=== PATIENT | female | born 1990 | race African-American/Black ===

== ENCOUNTER 2017-08-25 11:33 | Emergency (ER) | payer BC, SELFPAY ==
[2017-08-25] MEDS ORDERED: Dexamethasone 4 mg/ml Vial ONE (12:13)
[2017-08-25] MEDS ORDERED: Ketorolac Tromethamine 30 MG/ML VIAL ONE (12:13)
== END 2017-08-25 12:54 | disposition home or self-care (01) ==
LOC: ERS 11:33
DX: M65.842 Other synovitis and tenosynovitis, left hand (principal); G47.30 Sleep apnea, unspecified; F41.9 Anxiety disorder, unspecified
CPT/HCPCS: 96372; J1100; J1885

== ENCOUNTER 2017-10-28 19:15 | Emergency (ER) | payer BC, SELFPAY | END 2017-10-28 20:28 | disposition home or self-care (01) | LOC: ERS 19:15 | DX: J11.1 Influenza due to unidentified influenza virus with other respiratory manifestations (principal); G47.30 Sleep apnea, unspecified | CPT/HCPCS: 99283 ==

== ENCOUNTER 2018-08-03 21:59 | Emergency (ER) | payer BC, SELFPAY | END 2018-08-03 22:53 | disposition home or self-care (01) | LOC: ERS 21:59 | DX: G47.30 Sleep apnea, unspecified (principal) | CPT/HCPCS: 99284 ==

== ENCOUNTER 2019-01-21 14:20 | Outpatient (CLI) | payer OTHER ==
--- NOTE | 2019-01-21 15:14 | ULT ---
US Pelvic W Doppler HISTORY:Evaluation for size and dates COMPARISON: None. FINDINGS: Real-time imaging of the pelvis was obtained and shows a single viable intrauterine pregnan cy. The heart rate is 163 beats per minute. [place]-rump length measurements of 4.6 cm corresponding to 11 weeks 3 days. Gestational sac measurements of 4.5 cm corresponding to 10 weeks 0 days. Placenta is not accurately localized at this time but does appear to be forming posteriorly.. The right ovary shows a corpus luteum type cyst measuring approximately 2.7 cm. The left ovary is nev er definitively visualized. IMPRESSION: Single viable intrauterine measurements correspond to a gestational age of 10 w eeks 5 days. Estimated date of delivery 08/14/2019.
== END 2019-01-21 14:21 | disposition home or self-care (01) ==
LOC: SCSULT 14:20
PROVIDERS: ATTEND Nurse Practitioner
DX: O09.91 Supervision of high risk pregnancy, unspecified, first trimester (principal); Z3A.10 10 weeks gestation of pregnancy
CPT/HCPCS: 76856; 93976

== ENCOUNTER 2019-03-22 06:38 | Outpatient (CLI) | payer OTHER ==
--- NOTE | 2019-03-22 11:52 | ULT ---
OB ULTRASOUND: HISTORY: anatomy. FINDINGS: A single live intrauterine gestation is seen with measurements corresponding to an estimated gestatio nal age of 20 weeks 1 day and an GREGG of 08/08/2019. The estimated weight measures 335 g (12 oz ). This corresponds to the 90th percentile by Hadlock criteria. measurements are as follows: BPD: 4.59 cm (20 weeks 0 day) HC: 17.03 cm (19 weeks 5 days) AC: 14.44 cm (19 weeks 6 days) FL: 3.41 cm (20 weeks 6 days) heart rate measures 144 beats per minute. Cervical length measures 3.5 cm. The placenta is po steriorly located without evidence of placenta previa. Amniotic fluid appears within normal limits. Three-vessel cord, cord insertion, kidneys, bladder, stomach, four-chambered heart, lateral reji tricles, cerebellum, bladder, spine. lips/nose, and upper and lower extremities are visualized. No d efinite anomalies are seen. There is a 3.1 x 2.5 x 2.4 cm fibroid in the anterior uterus. There is a 4.9 x 4 x 3.5 cm adnexal mass adjacent to the right ovary with low resistance flow. No fr ee fluid is seen. IMPRESSION: 1. Single live intrauterine of 20 weeks' 1 day estimated gestational age and estimated jt e of delivery of 08/08/2019. 2. Uterine fibroid. 3. Right adnexal mass, measuring 4.9 x 4 x 3.5 cm. A follow-up examination is recommended. POS: E[facility]
== END 2019-03-22 06:39 | disposition home or self-care (01) ==
LOC: BICULT 06:38
PROVIDERS: ATTEND Obstetrics & Gynecology
DX: O09.92 Supervision of high risk pregnancy, unspecified, second trimester (principal); Z3A.20 20 weeks gestation of pregnancy
CPT/HCPCS: 76805

== ENCOUNTER 2019-05-25 13:34 | Day surgery (SDC) | payer OTHER ==
[2019-05-25 14:23] VITALS: BMI 47.0
--- NOTE | 2019-05-25 15:08 | PDOC.FPROB ---
FMR OB H&P: HPI - History of Present Illness Chief Complaint: heart racing Indentification: 28 yo at 28.3 wga by LMP c/w 7.5 wk sono History of Present Illness: Patient presents for "heart racing" which started last night. She saw her doctor yesterday and they told her to go to the ER, but she was feeling well and came in today when the palpitations started. She has never had this feeling before, although she does note she has had EKGs previously for chest pain symptoms. States pain is intermittent and worse at night. Associated symptoms include lightheadedness, dizziness, shortness of breath that worsens w / activity, night sweats, and tingling/numbness in her fingers and toes. Denies chest pain currently. Patient reports headache nearly every night and some blurry vision at the end of her day. Denies extremity swelling and abdominal pain. She reports no complications w/ this . She denies VB, LOF, Contractions. Endorses movement. The patient states she has a 31 yo cousin who suffers from CHF but she is not sure of the source. She states she has multiple other family members of similiar ages on medications for heart disease but is unsure of specific diagnosis. Primary Care Physician: Guerita FMR OB H&P: Current - Care : 1 Para: 0 Gestational age: 28.3 wga Due date: 08/14/2019 Dating Criteria: LMP c/w 7.5 wk sono Course/Complications: None reported. Rh-negative. - OB Labs Blood type: A RH: negative HIV: negative RPR: negative HepBsAg: negative Rubella: immune Quad screen: negative Urine drug screen: negative Gonorrhea: negative Chlamydia: negative FMR OB H&P: History - Past Medical History PMH: Severe sleep apnea. Does not use CPAP or anything else at night. Thyroid disorder. Reports needing medication years ago and her thyroid was high. However, she has not taken these medications for years and says the issue seemed to resolve. Acid reflux, occasionally. - OB History OB History: Denies gHTN, GDM, Pre-E or other problems. - Family History Family History: Mother: HTN. Maternal relatives w/ HTN. FMR OB H&P: Medications - Current Allergies/Adverse Reactions: Allergies Allergy/AdvReac Type Severity Reaction Status Date / Time No Known Allergies Allergy Verified 05/25/19 14:20 FMR OB H&P: ROS - Review of Systems General: reports: night sweats. denies: fever/chills, weight/appetite/sleep changes Eyes: reports: vision changes, double vision ENT: denies: nasal congestion, rhinorrhea, ear pain, sore throat, pain with swallowing Cardiovascular: reports: palpitation. denies: chest pain, edema, orthopnea Respiratory: reports: shortness of breath, exercise intolerance. denies: cough , congestion Gastrointestinal: denies: abdominal pain, nausea, vomiting, constipation Genitourinary (Female): reports: vaginal discharge (minimal). denies: dysuria, vaginal pain, vaginal bleeding, contractions, vaginal pressure Musculoskeletal: denies: pain, swelling Neurologic: reports: headache. denies: syncope Integumentary: denies: itching, rash Psychological: denies: depression, anxiety FMR OB H&P: Vital Signs - Maternal Vital signs: HR: 120s on admission BP 128/76 RR: 18 Temp 98.2 - Heart Tones Baseline: 140 (reactive) Variability: moderate FMR OB H&P: Physical Exam - Physical Exam General: NAD, awake, alert and oriented HEENT: normocephalic and atraumatic, PERRLA, MMM, conjunctiva clear, no scleral icterus, oropharynx clear Neck: supple (some hair under chin), trachea midline, no LAD (no thyromegaly) Chest: non-tender to palpation Heart: normal S1/S2, no murmurs/rubs/gallops (tachycardic rate) General: CTAB, no respiratory distress, good air movement Abdomen: soft, gravid, fundus(cm) (above umbilicus), non-tender, bowel sound present Musculoskeletal: pulses present (in all 4 extremities) Skin: no rash, capillary refill <2 seconds Lymphatic: no unusual bruising or bleeding, no petechia Psychiatric: intact recent and remote memory, good judgement and insight, normal mood and affect FMR OB H&P: A/P Disposition: 28 yo here for heart palpitations: - Will monitor in OB triage pending labs - EKG ordered: result was sinus tachycardia at 104 bpm. - TSH ordered: WNL - CMP, magnesium ordered: WNL - Low suspicion for Pre-eclampsia F/U plan: - Patient okay to d/c home. - Her HR has improved from 120 to 104 since admission. - Encourage PO hydration and routine f/u w/ PCP and providers. - Gave referral information for Dr. Hawthorne office - faxing record of this visit to Dr. Hawthorne's office, he has been notified to expect referral - discussed case with patient's PCP Dr. Tera Kennedy MD PGY1 Discussion: Date/Time: 05/25/191 This H&P was discussed with Dr. Verduzco, and Dr. Gamboa who agree with the above documentation and plan. Addendum - Attending - Attending Attestation Date/Time: 05/26/192014 I personally evaluated the patient and discussed the management with Dr. Verduzco I agree with the History, Examination, Assessment and Plan documented above with any addition or exceptions noted below. Pt presenting with intermittent paroxyzmal palpitations with associated sob. Pt reports symptoms have improved since coming. Has family h/o heart problems on her mom's side. No obstetric complaints vital review tachycardia improved with po hydrations EKG wnl rrr ctab A/P iup third trimester with paroxysmal palpatations. given reported family h/o heart problems we have contacted the lab nurse computer numerical control programmer and have arranged out pt referral for follow up. EKG, notes have been faxed to Dr Sepulveda office. Pt has been d/c'd home
[2019-05-25 15:51] LABS: ALT (SGPT) 11 U/L (8-55); AST (SGOT) 12 U/L (5-34); Albumin 3.2 g/dL (3.5-5.0); Alkaline Phosphatase 83 U/L (40-150); Anion Gap 13 mmol/L (10-20); BUN (Urea Nitrogen) 6 mg/dL (7.0-18.7); Bilirubin, Total Less than 0.2 mg/dL (0.2-1.2); Calc. Creatinine Clearance 223 mL/min (70-130); Calcium 8.8 mg/dL (7.8-10.44); Carbon Dioxide 19 mmol/L (22-29); Chloride 106 mmol/L (98-107); Estimated GFR-MDRD Greater than 90; Globulin 3.3 g/dL (2.4-3.5); Glucose 128 mg/dL (70-105); Magnesium 1.7 mg/dL (1.6-2.6); Potassium 3.7 mmol/L (3.5-5.1); Protein, Total 6.5 g/dL (6.0-8.3); Sodium 134 mmol/L (136-145)
== END 2019-05-25 17:20 | disposition home health service (06) ==
LOC: L&D/OP 13:34
PROVIDERS: ATTEND Obstetrics & Gynecology
DX: O99.89 Other specified diseases and conditions complicating pregnancy, childbirth and the puerperium (principal); R00.2 Palpitations; Z3A.28 28 weeks gestation of pregnancy
CPT/HCPCS: 36415; 80053; 83735; 84443; 93005; 93010; 99282

== ENCOUNTER 2019-06-15 14:11 | Outpatient (CLI) | payer OTHER ==
--- NOTE | 2019-06-15 14:45 | ULT ---
OB ULTRASOUND LIMITED: 06/15/19 INDICATION: Evaluation of growth. FINDINGS: There is a live intrauterine gestation with cardiac activity documented at 153 beats per minute . On the basis of sonographic imaging, gestational age of 31 weeks, 3 days is documented with estimated date of delivery by ultrasound of 08/14/19. Fetus is in a cephalic lie. Placenta is located to the le ft. There is no sonographic evidence to indicate placenta previa. Calculated DANIEL is 8.5 cm. Estimated weight is 1801 grams. Dedicated anatomic survey not performed on the basis of the exam. IMPRESSION: Single live intrauterine gestation as above. As necessary, imaging follow-up may be obtained. POS: TPC
== END 2019-06-15 14:12 | disposition home or self-care (01) ==
LOC: BICULT 14:11
DX: O09.893 Supervision of other high risk pregnancies, third trimester (principal); Z3A.31 31 weeks gestation of pregnancy
CPT/HCPCS: 76815

== ENCOUNTER 2019-07-15 16:20 | Day surgery (SDC) | payer OTHER ==
[2019-07-15] MEDS ORDERED: hydrALAZINE 20 MG/ML VIAL SLOW IVP PRN (17:36)
[2019-07-15 17:54] VITALS: BMI 43.3
--- NOTE | 2019-07-15 18:28 | PRG ---
DATE OF SERVICE: 07/15/2019 TIME OF SERVICE: 1730 hours. PRESENTING COMPLAINT: Seeing spots and contractions at 35 weeks and 5 days. HISTORY OF PRESENT ILLNESS: Ms. Mcnamara is a 28-year-old 1, para 0, with the EDC of 08/14, placing her at 35 weeks and 5 days, who sees Dr. Niya Haley at [facility]. She has had an uncomplicated and reports seeing spots this afternoon and contractions. She denies headache or blurred vision. She denies rupture of membranes. She has an active fetus. ASSOCIATE ACCOUNT EXECUTIVE HISTORY: A negative. Antibody negative. Pap negative. Rubella immune. VDRL nonreactive. Hepatitis B, GC, chlamydia negative. UDS negative. Group B strep pending. MEDICAL HISTORY: The patient had a long history of palpitations that seem worse during . She is currently wearing a Holter monitor. She saw a motor grader rough grade in [place]. SURGICAL HISTORY: None. ALLERGIES: NONE. MEDICATIONS: vitamins. SOCIAL HISTORY: Denies tobacco, alcohol, or IV drug use. FAMILY HISTORY: Noncontributory. REVIEW OF SYSTEMS: Noncontributory. PHYSICAL EXAMINATION: GENERAL: White female, resting comfortably. VITAL SIGNS: Pulse 86, respirations 18, temp 98.2, blood pressure was 116/72, serial blood pressures were all less than 128/86. HEENT: Within normal limits. LUNGS: Clear to auscultation bilaterally. HEART: Regular rhythm. ABDOMEN: Soft and nontender. Fundal height 36 cm. FHTs 140s. : Vulva without lesions. Vaginal exam by RN was closed, long, and high. Cephalic. EXTREMITIES: Without clubbing, cyanosis, or edema. LABORATORY DATA: Extended monitoring revealed a baseline of 130s to 140s. Positive accelerations. No decelerations. No contractions noted. Category I heart rate tracing. IMPRESSION: 35 to 36 weeks gestation without evidence of preeclampsia or labor. Discomforts of present. PLAN: Discharge home. ER precautions. Keep scheduled followup tomorrow with Dr. Niya Haley at [facility]. Job ID: [id number]
== END 2019-07-15 17:56 | disposition home health service (06) ==
LOC: L&D/OP 16:20
PROVIDERS: ATTEND Obstetrics & Gynecology
DX: O47.03 False labor before 37 completed weeks of gestation, third trimester (principal); O26.893 Other specified pregnancy related conditions, third trimester; H53.8 Other visual disturbances; Z3A.35 35 weeks gestation of pregnancy

== ENCOUNTER 2019-08-09 05:30 | Inpatient (IN) | payer OTHER ==
[~2019-08-09 05:30] MED LIST: Bupivacaine 0.25% HCL 30 ML VIAL ONE; Butorphanol Tartrate 1 MG/ML VIAL SLOW IVP PRN; Docusate 100 MG CAP PO PRN; HYDROcodone/Acetaminophen 5/325 mg Tablet PO PRN; Ibuprofen 800 MG TAB PO PRN; Lidocaine 1% (PF) 30 ML VIAL SC PRN; Lidocaine 2% MPF 10 ML AMP (For Epidural Use) ONE; NS / Oxytocin 40 units/1000ml 1,000 ML IV PRN; Ondansetron PF 4 MG/2 ML Vial IVP PRN; Promethazine HCl 25 MG/ML VIAL IM PRN; Zolpidem Tartrate 5 MG TAB PO PRN; ePHEDrine/0.9% NaCl/PF SYRINGE 50 mg/10 ml ONE; hydrALAZINE 20 MG/ML VIAL SLOW IVP PRN
[2019-08-09 06:31] VITALS: BMI 49.1
[2019-08-09] MEDS: Lactated Ringer's 1,000 ML IV SCH ×4 (06:50→15:45)
[2019-08-09 07:13] LABS: Hemoglobin 11.8 g/dL (12.0-16.0); Mean Corpuscular HGB CONC 33.5 g/dL (32.0-36.0); Mean Corpuscular Hemoglobin 25.7 pg (27.0-31.0); Mean Corpuscular Volume 76.9 fL (78.0-98.0); Mean Platelet Volume 8.1 fL (7.4-10.4); Platelet Count 315 thou/uL (130-400); Red Blood Cell (RBC) Count 4.58 mill/uL (4.20-5.40); White Blood Cell (WBC) Count 12.3 thou/uL (4.8-10.8)
[2019-08-09 07:46] LABS: HBSAg Index 0.17 S/CO (0-0.99); Hep B Surf Ag Non-Reactive S/CO (NonReactive); Syphilis Antibody Nonreactive (Nonreactive); Syphilis Antibody Index 0.06 S/CO (<1.00 Non-Reactive)
[2019-08-09] MEDS ORDERED: Penicillin G Potassium 5 MILL.UNITS VIAL ONE (08:59)
[2019-08-09] MEDS ORDERED: Penicillin G Potassium 5 MILL.UNITS in Sodium Chloride 0.9% 100 ML IVPB SCH (09:15)
[2019-08-09] MEDS ORDERED: Fentanyl 4 mcg/Bup 0.1% Cadd 100 ML ONE ×2 (10:58→20:25)
[2019-08-09] MEDS ORDERED: ePHEDrine/0.9% NaCl/PF SYRINGE 50 mg/10 ml SLOW IVP PRN (13:01)
[2019-08-09] MEDS ORDERED: Ondansetron PF 4 MG/2 ML Vial IVP PRN (13:01)
[2019-08-09] MEDS ORDERED: Naloxone HCl 0.4 mg/ml Vial IVP PRN ×2 (13:01)
[2019-08-09] MEDS ORDERED: Acetaminophen 325 MG TAB PO PRN (13:01)
[2019-08-09] MEDS ORDERED: Lactated Ringer's 500 ML IV PRN (13:01)
[2019-08-09] MEDS ORDERED: Promethazine HCl 25 MG/ML VIAL IM PRN (13:01)
[2019-08-09] MEDS ORDERED: diphenhydrAMINE 50 MG/ML VIAL IVP PRN (13:01)
[2019-08-09] MEDS ORDERED: Communication Order-Pharmacy FS SCH (13:15)
[2019-08-09] MEDS ORDERED: Fentanyl 4 mcg/Bupivacaine 0.1% Cassette 100 ML EPIDURAL SCH (13:15)
[2019-08-09] MEDS: Penicillin G 2.5 MILL.units 2.5 MILL.UNITS in Premix Bag 1 BAG IVPB SCH ×3 (15:43→19:37)
[2019-08-09] MEDS: NS w/ Oxytocin 10 units 500 ML IV SCH (20:31)
[2019-08-09] MEDS ORDERED: NS / Oxytocin 40 units/1000ml 1,000 ML ONE (23:44)
[2019-08-09] MEDS ORDERED: Lidocaine 1% (PF) 30 ML VIAL ONE (23:44)
[2019-08-10] MEDS ORDERED: Ondansetron PF 4 MG/2 ML Vial IVP PRN (01:37)
[2019-08-10] MEDS ORDERED: Milk Of Magnesia 30 ML UDCUP PO PRN (01:37)
[2019-08-10] MEDS ORDERED: hydrALAZINE 20 MG/ML VIAL SLOW IVP PRN (01:37)
[2019-08-10] MEDS ORDERED: Bisacodyl 10 MG SUPP PR PRN (01:37)
[2019-08-10] MEDS ORDERED: HYDROcodone/Acetaminophen 5/325 mg Tablet PO PRN ×2 (01:37)
[2019-08-10] MEDS ORDERED: Preparation H Ointment 28 GM TUBE PR PRN (01:37)
[2019-08-10] MEDS ORDERED: Lanolin Ointment 7 GM TUBE TOP PRN (01:37)
[2019-08-10] MEDS ORDERED: Benzocaine-Menthol 82.5 ML CAN TOP PRN (01:37)
[2019-08-10] MEDS ORDERED: NS / Oxytocin 40 units/1000ml 1,000 ML IV SCH (01:45)
[2019-08-10] MEDS ORDERED: Calcium Carbonate 500 MG ChewTAB PO PRN (01:48)
--- NOTE | 2019-08-10 03:57 | OP ---
DATE OF PROCEDURE: 08/10/2019 PREOPERATIVE DIAGNOSES: 1. A 28-year-old, G1, presented at 39 and 2 for induction of labor by Pitocin. 2. Family history of cardiac disorders with early myocardial infarction. echo done during was within normal limits. Maternal echo was within normal limits and Holter monitor was inconclusive. 3. GBS negative. POSTOPERATIVE DIAGNOSES: 1. A 28-year-old, G1, presented at 39 and 2 for induction of labor by Pitocin. 2. Family history of cardiac disorders with early myocardial infarction. echo done during was within normal limits. Maternal echo was within normal limits and Holter monitor was inconclusive. 3. GBS negative. 4. Live-born male weighing 7 pounds 12 ounces with Apgars of 9 and 9 at 1 and 5 minutes respectively. ESTIMATED BLOOD LOSS: 450 mL. ANESTHESIA: Combination of spinal and epidural. PROCEDURES PROCEDURE: 1. Spontaneous vaginal delivery. 2. Repair of a midline laceration, second degree. CLINICAL HISTORY: This patient is a 28-year-old female G1, who had routine care at the [facility]. She was compliant and had a full composite of her OB care. It was noted in her 1st trimester that she had a significant family history of sudden cardiac and the concern for cardiomyopathy was explained to her. The patient also had had a couple of episodes of chest pain. She was sent to Cardiology for an evaluation and had an echocardiogram that was within normal limits. She did also wear a Holter monitor in her 3rd trimester, which was inconclusive. The patient did have one ER visit for chest pain, but was otherwise unremarkable. She was admitted at her scheduled time on 08/09 and was noted to be 2.5 cm, 70% effaced, and -3 station. Pitocin was started after IV fluids and NST was performed, and the patient continued to titrate to appropriate contraction. She did request an epidural for maternal analgesia. Unfortunately, after the epidural and spinal combination, which was a difficult procedure per Anesthesiology with multiple sticks. The patient had a reflexive hypotensive episode, which required maternal repositioning, IV fluid bolus, amniotomy and internal monitors placed. The patient did recover well. She did have an 8-minute deceleration during that process, but when her blood pressure increased , the baby and mother recovered and had no other issues during the induction. She continued to progress along the labor curve to 5-6 cm and at that time, an IUPC was placed. The patient continued to have clear fluid throughout the entirety of her laboring process. With the IUPC placement, it was noted that her contractions were adequate and she had increasing titration of her Pitocin. When she went to complete and +2 station, the patient was allowed to push. DETAILS OF PROCEDURE: With good maternal effort, the patient was able to push, and delivered the vertex in the NICOLAS position. There was a nuchal cord that was noted that was loose. It was reduced at the perineum. The anterior shoulder followed by the posterior shoulder, followed by the remainder of the infant's body was delivered. The cord was doubly clamped and then cut by the father of the baby and then the was placed on the maternal abdomen for continued stimulation. A cord blood was obtained. The placenta was delivered spontaneously intact with a 3-vessel cord. Exploration of the vagina, introitus, and the cervix noted a second-degree midline laceration which was repaired in a running locking fashion with several crown stitches to reapproximate the space and then a shallow subcutaneous closure bearing the knot behind the hymen. The patient tolerated the procedure well. After the repair, her fundus was noted to be elevated higher in the abdomen than it was immediately following delivery of the placenta. She was manually expressed for several clots and then was noted to have hemostasis. The quantitative blood loss calculation was not available at the time of the dictation. The was allowed to recover in Labor and Delivery with the mother. Again , the was a live born male, weighing 7 pounds 12 ounces with Apgars of 9 and 9 at 1 and 5 minutes respectively. All needle, sponge, lap, and instrument counts were correct x2 at the end of the procedure. There were no other issues surrounding this delivery. Job ID: [id number] [facility]
--- NOTE | 2019-08-10 04:29 | PDOC.EVN ---
Event Note - Event Note Event Note: called to bedside for low back pain. pt has refused eval. pain in upper left gluteal region. suspect muscle spasm. flexeril ordered
[2019-08-10] MEDS ORDERED: Cyclobenzaprine 10 MG TAB PO SCH (05:00)
[2019-08-10] MEDS: Penicillin G 2.5 MILL.units 2.5 MILL.UNITS in Premix Bag 1 BAG IVPB SCH ×4 (06:42→20:44)
[2019-08-10] MEDS: NS w/ Oxytocin 10 units 500 ML IV SCH (06:43)
[2019-08-10] MEDS: Ibuprofen 800 MG TAB PO SCH ×3 (06:44→22:05)
[2019-08-10] MEDS: Ferrous Sulfate 325 MG TAB PO SCH ×2 (07:13→13:41)
[2019-08-10] MEDS: Prenatal Vitamin 1 TAB PO SCH (08:45)
[2019-08-10] MEDS: Docusate Calcium (SURFAK) 240 MG CAP PO SCH ×2 (08:45→22:05)
[2019-08-10] MEDS: HYDROcodone/Acetaminophen 5/325 mg Tablet PO PRN ×3 (08:45→17:54)
[2019-08-10] MEDS ORDERED: Adacel (T-DAP) 0.5 ML SYRINGE IM ONE (09:00)
[2019-08-10] MEDS: Lactated Ringer's 1,000 ML IV SCH ×2 (10:24→20:44)
[2019-08-11] MEDS: Penicillin G 2.5 MILL.units 2.5 MILL.UNITS in Premix Bag 1 BAG IVPB SCH ×6 (01:23→23:55)
[2019-08-11] MEDS: Lactated Ringer's 1,000 ML IV SCH ×3 (01:24→21:18)
[2019-08-11] MEDS: NS w/ Oxytocin 10 units 500 ML IV SCH (01:25)
[2019-08-11] MEDS: HYDROcodone/Acetaminophen 5/325 mg Tablet PO PRN ×3 (06:13→21:19)
[2019-08-11] MEDS: Ibuprofen 800 MG TAB PO SCH ×3 (06:13→22:55)
[2019-08-11] MEDS: Docusate Calcium (SURFAK) 240 MG CAP PO SCH ×2 (09:01→21:20)
[2019-08-11] MEDS: Ferrous Sulfate 325 MG TAB PO SCH ×2 (09:02→17:59)
[2019-08-11] MEDS: Prenatal Vitamin 1 TAB PO SCH (09:02)
[2019-08-12] MEDS: Lactated Ringer's 1,000 ML IV SCH ×2 (03:06→09:03)
[2019-08-12] MEDS: Penicillin G 2.5 MILL.units 2.5 MILL.UNITS in Premix Bag 1 BAG IVPB SCH ×3 (03:06→09:03)
[2019-08-12] MEDS: NS w/ Oxytocin 10 units 500 ML IV SCH (03:06)
[2019-08-12] MEDS: Ibuprofen 800 MG TAB PO SCH ×2 (06:03→14:14)
[2019-08-12] MEDS: Ferrous Sulfate 325 MG TAB PO SCH ×2 (07:57→14:15)
[2019-08-12] MEDS ORDERED: Gabapentin 300 MG CAP PO SCH (09:00)
[2019-08-12 09:01] VITALS: BP 130/72; TEMP 98.5
[2019-08-12] MEDS: Docusate Calcium (SURFAK) 240 MG CAP PO SCH (09:25)
[2019-08-12] MEDS: Prenatal Vitamin 1 TAB PO SCH (09:25)
[2019-08-12] MEDS: HYDROcodone/Acetaminophen 5/325 mg Tablet PO PRN (12:23)
== END 2019-08-12 17:40 | disposition home or self-care (01) | DRG 807 ==
LOC: L&D 05:47 → 3SW 08-10 04:37
PROVIDERS: ADMIT Obstetrics & Gynecology; ATTEND Obstetrics & Gynecology
PROC: 10E0XZZ Delivery of Products of Conception, External Approach (ICD-10-PCS; principal; 2019-08-10)
PROC: 0KQM0ZZ Repair Perineum Muscle, Open Approach (ICD-10-PCS; 2019-08-10)
PROC: 10907ZC Drainage of Amniotic Fluid, Therapeutic from Products of Conception, Via Natural or Artificial Opening (ICD-10-PCS; 2019-08-10)
PROC: 3E0P7VZ Introduction of Hormone into Female Reproductive, Via Natural or Artificial Opening (ICD-10-PCS; 2019-08-10)
PROC: 3E033VJ Introduction of Other Hormone into Peripheral Vein, Percutaneous Approach (ICD-10-PCS; 2019-08-10)
DX: O76 Abnormality in fetal heart rate and rhythm complicating labor and delivery (principal); Z37.0 Single live birth; O99.824 Streptococcus B carrier state complicating childbirth; O69.81X0 Labor and delivery complicated by cord around neck, without compression, not applicable or unspecified; O70.1 Second degree perineal laceration during delivery; Z3A.39 39 weeks gestation of pregnancy; O89.8 Other complications of anesthesia during the puerperium; O26.53 Maternal hypotension syndrome, third trimester; Z82.49 Family history of ischemic heart disease and other diseases of the circulatory system; S74 Injury of nerves at hip and thigh level
CPT/HCPCS: 36415; 51702; 85027; 85461; 86780; 86850; 86900; 86901; 87340; 90384; 96372; J2001; J2405; J2540; J2590; J3490; S0020

== ENCOUNTER 2020-06-23 13:13 | Day surgery (SDC) | payer OTHER ==
[2020-06-23 14:22] VITALS: BP 137/86; TEMP 98.3; BMI 48.4
[2020-06-23] MEDS ORDERED: hydrALAZINE 20 MG/ML VIAL SLOW IVP PRN (14:44)
--- NOTE | 2020-06-23 14:51 | PDOC.FPROB ---
FMR OB H&P: HPI - History of Present Illness Chief Complaint: Decreaed movement History of Present Illness: This is a 29 yo at 37.2 wks by LMP c/w11.6 wk US who presents to L&D with a cc of decreased movement. She states this started today and reports yesterday her baby was moving quite regularly. She also reports a loss of fluid on Friday and was seen at [facility] and was told that she had not ruptured her membranes. She reports contractions roughly every hour. In addition, she reports some headaches that come and go, some blurry vision, trace LE edema, and lower abdominal pain. She states that since being here, she has had improved movement Her has been complicated by poorly controlled A2 GDM, cHTN not on medication, iron deficiency anemia, morbid obesity, STAR, and RH negative status. Primary Care Physician: Flor Abdul DO FMR OB H&P: Current - Care : 2 Para: 1001 Gestational age: 37.2 Due date: 07/12/20 Dating Criteria: LMP c/w 11.6 wk US - OB Labs Blood type: A RH: negative (Rhogam given 04/17/20) HIV: negative RPR: negative HepBsAg: unknown Gonorrhea: negative Chlamydia: negative 1 hour gtt: (2hr) F: 81, 1/2 hr 171, 1hr 151, 2 hr 147 GBS: negative H&H: 10.9/33.1 (06/16/20) Additional labs: Tdap given 04/24/20 FMR OB H&P: History - Past Medical History PMH: Thyroiditis (resolved), STAR, prediabetes, iron deficiency anemia - OB History OB History: A2 GDM - ECHOCARDIOGRAPH TECHNICIAN History ECHOCARDIOGRAPH TECHNICIAN History: N/A - Surgical History Sx History: N/A - Social History Social History: Denies drugs, alcohol, tobacco - Family History Family History: both parents had HTN FMR OB H&P: Medications - Current Home Medications: Medication Instructions Recorded Confirmed Type Insulin Lispro [Humalog Kwikpen 39 unit SQ 06/23/20 History U-100] Insulin Lispro [Humalog Kwikpen 69 unit SQ PRN 06/23/20 History U-100] Iron 18 mg PO DAILY 06/23/20 06/23/20 History metroNIDAZOLE [Metronidazole] 500 mg PO BID #14 tablet 06/23/20 Rx Allergies/Adverse Reactions: Allergies Allergy/AdvReac Type Severity Reaction Status Date / Time No Known Allergies Allergy Verified 06/23/20 14:11 FMR OB H&P: ROS - Review of Systems General: denies: fever/chills, weight/appetite/sleep changes, night sweats, fatigue Eyes: reports: vision changes (blurry), floaters. denies: eye pain, scotomas ENT: denies: nasal congestion, frequent nose bleed Cardiovascular: reports: edema (more that before). denies: chest pain, palpitation Respiratory: denies: cough, congestion, shortness of breath, exercise intolerance Gastrointestinal: reports: abdominal pain (lower, superpubic), nausea. denies: indigestion, cramping, vomiting Genitourinary (Female): reports: vaginal discharge. denies: incontinence, dysuria, hematuria, vaginal pain, vaginal bleeding, vaginal mass/sore, vaginal pressure Musculoskeletal: reports: pain (back and left hip pain) Neurologic: denies: numbness, syncope, loss of counsciousness Integumentary: denies: itching, rash Endocrine: denies: cold intolerance, heat intolerance Hematologic/Lymphatic: denies: prolonged or excessive bleeding, enlarged lymph nodes Psychological: denies: depression, anxiety FMR OB H&P: Vital Signs - Maternal Vital signs: Vital Signs - First Documented Temp Pulse Resp BP Pulse Ox 98.3 F 99 20 137/86 99 06/23/20 14:10 06/23/20 14:10 06/23/20 14:10 06/23/20 14:10 06/23/20 14:10 - Heart Tones Baseline: 150 Variability: moderate Acceleration: present Deceleration: absent Category: category 1 [place] contractions every: N/A FMR OB H&P: Physical Exam - Physical Exam General: NAD, awake, alert and oriented HEENT: normocephalic and atraumatic, MMM, grossly normal vision, grossly normal hearing Neck: supple, trachea midline, no JVD Chest: non-tender to palpation, no lesions Heart: RRR, normal S1/S2, no murmurs/rubs/gallops, other (trace edema) General: CTAB, no respiratory distress, good air movement Abdomen: soft, gravid, non-tender, bowel sound present Musculoskeletal: pulses present, FROM in all four extremities Neurological: cranial nerves II through XII intact, sensation to pain,touch and proprioception grossly normal Skin: no rash, capillary refill <2 seconds Lymphatic: no unusual bruising or bleeding Psychiatric: intact recent and remote memory - Pelvic Exam Vulva: normal hair distribution, appropriate allen stage, no masses Cervix: no masses, no lesions, no blood SVE: 2/50/-3, posterior, soft cervix James score: 4 FMR OB H&P: A/P Disposition: Term sIUP with decreased movement and possible LOF -BPP/NST 07/15 -Speculum exam shows no pooling or expressed fluid with valsalva -Amnisure negative -Hep B, RPR, Rubella ordered today -Tdap on 04/24/20 -GBS neg -Reassuring findings A2GDM -Pt on insulin however has been poorly controlled -POC glucose 115 -A1c 5.9 today indicating good diabetic control -04/17/20 A1c was 5.9, 6.2 in 11/2019 cHTN, not currently on medications -BP WNL on L&D, office BP was slightly elevated -Urine protein/cr ratio was 0.1 Morbid obesity -Aware Iron deficiency anemia -H/H 10.9/33.1 on 06/16/20 RH negative -Rhogam received on 04/17/20 STAR -Aware Plan to discharge pt home. Return precautions given. Plan to return for mIOL on 06/28/20. Discussion: Date/Time: 06/23/20 [id number] This H&P was discussed with Dr. Dietz who agree with the above documentation and plan.
[2020-06-23 15:27] LABS: Amnisure Test No Membranes Rupture (No Rupture)
[2020-06-23 15:28] LABS: Amnisure Internal Control QC ACCEPTABLE (ACCEPTABLE)
[2020-06-23 15:34] LABS: Creatinine, Urine 141.31 mg/dL (47-110)
[2020-06-23 16:10] LABS: Syphilis Antibody Nonreactive (Nonreactive); Syphilis Antibody Index 0.05 S/CO (<1.00 Non-Reactive)
[2020-06-23 16:32] LABS: HBSAg Index 0.16 S/CO (0-0.99); Hep B Surf Ag Non-Reactive S/CO (NonReactive)
--- NOTE | 2020-06-23 16:45 | ULT ---
LIMITED OB ULTRASOUND ULTRASOUND BIOPHYSICAL PROFILE 06/23/20 HISTORY: Decreased movement. FINDINGS: A single live intrauterine gestation is seen with measurements corresponding to an estimated gestatio nal age of 36 weeks, 3 days and GREGG at 07/18/20. The estimated weight measures 2996 grams or 6 lb. 10 oz (41st percentile by Hadlock criteria). measurements are as follows: BPD 8.68 cm 35 weeks, 0 days HC 32.64 cm 37 weeks, 0 days AC 32.93 cm 36 weeks, 6 days FL 7.20 cm 36 weeks, 6 days heart rate measures 153 beats per minute. DANIEL measures 11.2 cm. placenta is on the maternal rig ht. ULTRASOUND BIOPHYSICAL PROFILE: tone: 2 breathin movements: 2 Amniotic fluid: 2 IMPRESSION: 1. Single live IUP of 36 weeks, 3 days and GREGG at 07/18/20. 2. Ultrasound biophysical profile score is 8 out of 8. POS: [facility]
[2020-06-23 16:46] LABS: Hemoglobin A1c 5.9 % (4.0-6.0)
== END 2020-06-23 17:40 | disposition home or self-care (01) ==
LOC: L&D/OP 13:13
PROVIDERS: ATTEND Family Medicine
DX: O36.8130 Decreased fetal movements, third trimester, not applicable or unspecified (principal); O24.414 Gestational diabetes mellitus in pregnancy, insulin controlled; O10.911 Unspecified pre-existing hypertension complicating pregnancy, first trimester; O99.013 Anemia complicating pregnancy, third trimester; D50.9 Iron deficiency anemia, unspecified; O99.213 Obesity complicating pregnancy, third trimester; E66.01 Morbid (severe) obesity due to excess calories; O26.891 Other specified pregnancy related conditions, first trimester; G47.33 Obstructive sleep apnea (adult) (pediatric); Z3A.37 37 weeks gestation of pregnancy; Z79.4 Long term (current) use of insulin
CPT/HCPCS: 36415; 36416; 59025; 76815; 76819; 82570; 83036; 84112; 84156; 86762; 86780; 87340; 87480; 87510; 87660; 99285; C1726

== ENCOUNTER 2020-06-27 12:07 | Outpatient (CLI) | payer OTHER ==
[2020-06-28 11:57] LABS: SARS-CoV-2 MS2 Positive; SARS-CoV-2 N Gene Negative; SARS-CoV-2 S Gene Negative; SARS-CoV-2 by NAA Not Detected (NotDetected); SARS-CoV-2 orf1ab Negative
== END 2020-06-27 12:08 | disposition home or self-care (01) ==
LOC: LABSCS 12:07
PROVIDERS: ATTEND Family Medicine
DX: Z20.828 Contact with and (suspected) exposure to other viral communicable diseases (principal)
CPT/HCPCS: 87635; U0003

== ENCOUNTER 2020-06-28 05:30 | Inpatient (IN) | payer OTHER ==
--- NOTE | 2020-06-27 10:30 | PDOC.FPROB ---
FMR OB H&P: HPI - History of Present Illness Chief Complaint: mIOL for A2GDM Indentification: 29 yo @ 38.0 wks History of Present Illness: Patient is a 29 yo @ 38.0 wks who presents today for mIOL 2/2 A2GDM. Patient has history concerning for metabolic syndrome given labs. is also complicated by obesity, STAR, chronic HTN (not on medications), and anemia. She reports that she has been feeling well since her hospital triage on Saturday 06/23. She endorses FM, denies VB, LOF, contractions, QUINN, vision changes, or changes in breathing. Her visit on 06/23 was for decreased movement, HTN, and tachycardia. Workup at that time showed BPP 10/10 with patient returning to normotensive after resting. Primary Care Physician: Dr. Franko GROVE FMR OB H&P: Current - Care : 2 Para: 1 Gestational age: 38.0 Due date: 07/12/20 Dating Criteria: LMP c/w 11.6 wk sono Total weight gain: 18 lbs Course/Complications: A2GDM cHTN Obesity Anemia STAR - OB Labs Blood type: A RH: negative Antibody Screen: negative HIV: negative RPR: negative HepBsAg: negative Rubella: immune Gonorrhea: negative Chlamydia: negative Pap Smear: NILM 04/2020 A1c: 5.9% on 06/23/20 GBS: negative H&H: 10.9/33.1 on 06/16/20 Platelets: 352 on 06/16/20 Additional labs: on 04/17/20 : TSH 2.4 T3 217 T4 10.9 - First Trimester Ultrasound First trimester: dating sono @ 11.6 weeks - Anatomy Survey Anatomy survey: 04/25 @ [facility] echo wnl efw 1211 g, hadlock 21% - Additional Ultrasound Additional: 06/16/20 growth and bpp 2692 g with hadlock 31.6 % BPP 8/8 with reactive NST @ [facility] 06/23/20 BPP 8/8 with reactive NST @ [facility] FMR OB H&P: History - Past Medical History PMH: Obesity Thyroiditis, with TSH wnl during STAR, non-compliant with CPAP machine Prediabetic, 6.4% prepregnancy A1C, Metabolic syndrome chronic HTN - OB History OB History: #1: @ 39.2. weight 7 lbs 12 oz. 08/10/19 no complications reported - UNCRATER History UNCRATER History: NILM pap 04/2020 - Surgical History Sx History: none - Social History Social History: Denies TAD use feels safe at home - Family History Family History: Mother: DM and HTN Maternal Grandmother: CHF Maternal aunt: HTN, DM FMR OB H&P: Medications - Current Home Medications: Medication Instructions Recorded Confirmed Type Insulin Lispro [Humalog Kwikpen 30 unit SQ ASDIR 06/23/20 06/28/20 History U-100] Insulin Lispro [Humalog Kwikpen 40 unit SQ DAILY 06/23/20 06/28/20 History U-100] Iron 18 mg PO DAILY 06/23/20 06/28/20 History NPH, Human Insulin Isophane 25 unit SC HS 06/27/20 06/28/20 History [Humulin N] NPH, Human Insulin Isophane 75 unit SC QAM 06/27/20 06/28/20 History [Humulin N] Allergies/Adverse Reactions: Allergies Allergy/AdvReac Type Severity Reaction Status Date / Time No Known Allergies Allergy Verified 06/23/20 14:11 FMR OB H&P: ROS - Review of Systems General: denies: fever/chills, weight/appetite/sleep changes Eyes: denies: vision changes, double vision ENT: denies: rhinorrhea, sore throat Cardiovascular: denies: chest pain, palpitation, edema Respiratory: denies: cough, shortness of breath Gastrointestinal: denies: abdominal pain, nausea, vomiting, diarrhea, constipation Genitourinary (Female): denies: incontinence, vaginal bleeding, contractions Integumentary: denies: itching, rash Psychological: reports: anxiety. denies: depression FMR OB H&P: Vital Signs - Maternal Vital signs: BP 131/76 HR 117, T 98.8 Wt 126 Kg - Heart Tones Baseline: 150 (180 on admission, decreased to 150 with rest and repositioning) Variability: moderate Acceleration: present Deceleration: absent Category: category 1 [place] contractions every: absent FMR OB H&P: Physical Exam - Physical Exam General: NAD, awake, alert and oriented HEENT: normocephalic and atraumatic, PERRLA Heart: pulses present, no edema General: no respiratory distress, good air movement Abdomen: soft, gravid Musculoskeletal: FROM in all four extremities Neurological: cranial nerves II through XII intact, no clonus, no focal deficit - Pelvic Exam Vulva: normal hair distribution, appropriate allen stage, no masses, no lesio ns, no discharge, no blood, normal rugae SVE: 2/50/-2 James score: 5 Membranes: intact Presentation: cephalic Estimated Weight: 7 lbs FMR OB H&P: Results - Labs Lab results: HBV, RPR, rubella wnl at visit 06/23 FMR OB H&P: A/P Discussion: Date/Time: 06/27/20 1027 29 Y/O @ 38.0 weeks dated by LMP c/w 11.6 wk dwain presents for mIOL. GREGG 07/12/20 1. sIUP @ 38.0 - continuous FHT and TOCO monitoring, internal monitors as indicated. - efw 06/16/20: 2692 g, Hadlock 31.6% - GBS neg - Tdap given 04/24 - recent full BPP wirh reactive NST 05/13 on 06/23/20 - Consider O2 usage for maternal resuscitation given hx of STAR and obesity, possible chronic low oxygen for mother - Start pitocin augmentation 2. A2GDM, insulin dependent - Likely related to metabolic syndrome - Goal BG 70-110 intrapartum - efw on 06/16/20 2692. - Q4h accucheck in latent labor, Q2h in active labor, Q1h in active second stage - fasting and 2 Hr PP glucose checks . - will need 6 week 75 gram GTT. - Pt may require continued treatment as she was pre-diabetic with A1C of 6.4 % pre- 3. cHTN - Well controlled not on medications. - Hydralazine PRN if BP> 160/110 - baseline urine Pro/Cr ratio 30/376- 0.079 on 05/16/20 - PT has been on ppx ASA 81 mg since week 12. - CMP, Pr/Cr ratio 4. Obesity affecting - BMI 48.4 - 18 lbs weight gain in 5. Anemia affecting - On PO iron, continue 6 weeks PP - H/H 10.9/33.1 on 06/16/20 6. Rh Negative status affecting - Rhogam given 04/17/20 - Rhogam to be given within 72 hours of delivery if fetus is Rh + 7. Hx of Thyroiditis - TSH wnl thorughout , will repeat @ f/u visit - Will need TPO antibodies at f/u, not seen in labs 8. GERD - TUMS PRN - Protonix 40 1 time 9. Tachycardia - likely anxiety - UDS This H&P was discussed with Dr. Abdul and Dr. Leon who agree with the above documentation and plan. Addendum - Attending - Attending Attestation Date/Time: 06/28/20 0846 I personally evaluated the patient and discussed the management with Dr. Erickson I agree with the History, Examination, Assessment and Plan documented above with any addition or exceptions noted below. 29 yo female at 38.0 wks by LMP/11.6 wk sono here for mIOL 2/2 A2GDM, cHTN, BMI 47 Patient doing well. BP normo to mild range. Asymptomatic. Labs pending. FHT reactive now. Initially tachycardia with minimal to moderate parveen. Improved with reassurance and IVFs. Cephalic by sono. SVE /-2, anterior, soft. - sIUP: OB record reviewed. Cephalic. Unsure EFW by Valerie 2/2 maternal habitus. - Incomplete care: Initially seen then lost to follow up throughout 2T and early 3T. - A2GDM: A1c 6.2% in 1T. Down trended in 2T. 2 hour gtt negative. Dx based on home glucose monitoring in 3T. Started on metformin but not controlled. Now treated with insulin. Glucose at goal per logs at last OV. Will trend glucose q 4 in latent, q 2 in active, q 1 in 2nd stage. Will need 6 wk pp screening for overt DM. - cHTN: No evidence of superimposed preE at this time. Labs pending. Monitor closely. Has been on ASA intermittently. - BMI 47: Multiple risk. Reassuring status at this time. - Untreated STAR: US reviewed but patient lost to care during large portion of . Supplemental O2 as needed with stress. Monitor CO2 with labs. Still pending. Encourage outpatient follow up and treatment. - Metabolic syndrome with glucose intolerance: Will need full workup and risk stratification in pp period. Will likely benefit from metformin, especial due to preDM and if patient desires to breast feed. - Rh negative: s/p Rhogam. studies after delivery to determine need for pp Rhogam. - hx of thyroiditis: Unsure if TPO antibodies obtained. Not seen in OB records today. Would get pp if not done. TSH 3.9 in 1T but down trended. Risk for overt hypothyroidism. Start pit induction. Monitor. Repeat SVE in 2 hours. Jus
[2020-06-28 07:10] VITALS: BMI 47.5
[2020-06-28] MEDS ORDERED: Lidocaine 1% (PF) 30 ML VIAL SC PRN (07:17)
[2020-06-28] MEDS ORDERED: Dextrose 5% in Water 1,000 ML IV PRN (07:19)
[2020-06-28] MEDS ORDERED: Dextrose 50% Abboject 50 ML SYRINGE SLOW IVP PRN (07:19)
[2020-06-28] MEDS ORDERED: Lactated Ringer's 500 ML IV SCH (07:45)
[2020-06-28] MEDS ORDERED: Acetaminophen 500 MG TAB PO PRN (08:52)
[2020-06-28] MEDS ORDERED: hydrALAZINE 20 MG/ML VIAL SLOW IVP PRN (08:52)
[2020-06-28] MEDS ORDERED: Promethazine HCl 25 MG/ML VIAL IM PRN (08:52)
[2020-06-28] MEDS ORDERED: Ondansetron PF 4 MG/2 ML Vial IVP PRN (08:52)
[2020-06-28 09:28] LABS: Hemoglobin 11.3 g/dL (12.0-16.0); Mean Corpuscular HGB CONC 32.8 g/dL (32.0-36.0); Mean Corpuscular Hemoglobin 24.8 pg (27.0-31.0); Mean Corpuscular Volume 75.8 fL (78.0-98.0); Mean Platelet Volume 8.3 fL (7.4-10.4); Platelet Count 278 thou/uL (130-400); RBC Distribution Width 15.8 % (11.5-14.5); Red Blood Cell (RBC) Count 4.54 mill/uL (4.20-5.40); White Blood Cell (WBC) Count 10.4 thou/uL (4.8-10.8)
[2020-06-28] MEDS: NS w/ Oxytocin 10 units 500 ML IV SCH ×2 (09:57→21:10)
[2020-06-28] MEDS: Lactated Ringer's 1,000 ML IV SCH ×4 (10:19→22:08)
[2020-06-28 11:26] LABS: Creatinine, Urine 112.49 mg/dL (47-110)
[2020-06-28 11:33] LABS: ALT (SGPT) 16 U/L (8-55); AST (SGOT) 22 U/L (5-34); Albumin 3.1 g/dL (3.5-5.0); Alkaline Phosphatase 204 U/L (40-110); Anion Gap 14 mmol/L (10-20); BUN (Urea Nitrogen) 10 mg/dL (7.0-18.7); Bilirubin, Total 0.2 mg/dL (0.2-1.2); Calc. Creatinine Clearance 215 mL/min (70-130); Carbon Dioxide 20 mmol/L (22-29); Chloride 105 mmol/L (98-107); Estimated GFR-MDRD Greater than 90; Glucose 76 mg/dL (70-105); Potassium 4.5 mmol/L (3.5-5.1); Protein, Total 7.1 g/dL (6.0-8.3); Sodium 134 mmol/L (136-145)
[2020-06-28] MEDS ORDERED: Calcium Carbonate 500 MG ChewTAB PO PRN (12:11)
--- NOTE | 2020-06-28 12:11 | PDOC.LDPN ---
Labor & Delivery Progress Note - Subjective Subjective: comfortable - Objective Vital signs reviewed and normal: yes General: NAD Uterine fundus: tender to palpation SVE: /-1 FHT: category 1, variability present [place] contractions every: irregular - Assessment (1) White classification A2 gestational diabetes mellitus (GDM), insulin controlled Code(s): O24.414 - GESTATIONAL DIABETES IN , INSULIN CONTROLLED Current Visit: No Status: Acute (2) Chronic hypertension during Code(s): O10.919 - UNSP PRE-EXISTING HTN COMP , UNSP TRIMESTER Current Visit: No Status: Acute (3) Obesity affecting Code(s): O99.210 - OBESITY COMPLICATING , UNSPECIFIED TRIMESTER Current Visit: No Status: Acute (4) Obstructive sleep apnea Code(s): G47.33 - OBSTRUCTIVE SLEEP APNEA (ADULT) (PEDIATRIC) Current Visit: No Status: Acute (5) Anemia affecting Code(s): O99.019 - ANEMIA COMPLICATING , UNSPECIFIED TRIMESTER Current Visit: No Status: Acute (6) Rh negative status during in third trimester Code(s): O26.893 - OTH RELATED CONDITIONS, THIRD TRIMESTER; Z67.91 - UNSPECIFIED BLOOD TYPE, RH NEGATIVE Current Visit: No Status: Acute Plan: continue plan of care, pitocin for augmentation -: 29 Y/O @ 38.0 weeks dated by LMP c/w 11.6 wk sono presents for mIOL. GREGG 07/12/20 1. sIUP @ 38.0 - SVE: /-1 @1209 - GBS neg - Consider O2 usage for maternal resuscitation given hx of STAR and obesity, possible chronic low oxygen for mother - Continue pitocin augmentation - Consider AROM and possible internal monitor placement at next check 2. A2GDM, insulin dependent - Goal BG 70-110 intrapartum - Q4h accucheck in latent labor, Q2h in active labor, Q1h in active second stage 3. cHTN - Well controlled not on medications. - Hydralazine PRN if BP> 160/110 4. Obesity affecting - aware 5. Anemia affecting - aware 6. Rh Negative status affecting - Rhogam given 04/17/20, give PP 7. Hx of Thyroiditis - aware 8. GERD - TUMS PRN 9. Tachycardia - UDS pending Addendum - Attending - Attending Attestation Date/Time: 06/28/20 0240 I personally evaluated the patient and discussed the management with Dr. Erickson I agree with the History, Examination, Assessment and Plan documented above with any addition or exceptions noted below. Progressing well. Continue pitocin per protocol. Repeat vaginal exam in 4 hours or as needed. Continue to monitor heart tracing closely. Currently cat 1. Patient would like epidural for pain control upon request. Cephalic presentation. Unsure EFW due to maternal habitus. Will review last sono. Would follow up with TPO antibodies in outpatient setting. Initial TSH 3.9. High risk for overt DM due to metabolic syndrome and pre-DM. A1c 6.2% on IOB labs. Would consider treating with metformin due to benefits after 6 wk pp screening. BMI 45 Breast feeding? Need to determine if patient prefers breast feeding. Will continue to encourage but would benefit from metformin use to help with . Jus
[2020-06-28] MEDS ORDERED: Pantoprazole 40 MG VIAL IVP SCH (12:15)
[2020-06-28 13:40] LABS: Amphetamine Not Detected (NotDetected); Barbiturates Screen Not Detected (NotDetected); Benzodiazepine Screen Not Detected (NotDetected); Cocaine Metabolite Screen Not Detected (NotDetected); Medtox Control Line Valid? VALID (VALID); Medtox Reader # READER 1; Methadone Not Detected (NotDetected); Methamphetamine Not Detected (NotDetected); Opiate Screen Not Detected (NotDetected); Oxycodone Screen Not Detected (NotDetected); Phencyclidine (PCP) Not Detected (NotDetected); THC/Cannabinoid Screen Not Detected (NotDetected); Tricyclic Screen Not Detected (NotDetected)
[2020-06-28] MEDS ORDERED: Bupivacaine HCl 0.5%/Epinephrine 1:200,000/PF 30 ml Vial ONE (16:08)
[2020-06-28] MEDS ORDERED: Fentanyl 4 mcg/Bup 0.1% Cadd 100 ML ONE (17:09)
--- NOTE | 2020-06-28 18:28 | PDOC.LDPN ---
Labor & Delivery Progress Note - Subjective Subjective: comfortable - Objective Abnormal vital signs: One severe range BP of 162/83, next reading of 155/89 General: NAD, resting Dilation: 5 Effacement: 75% Station: -2 FHT: category 1, variability present [place] contractions every: 3-4 AROM: clear fluid -: 29 Y/O @ 38.0 weeks dated by LMP c/w 11.6 wk sono presents for mIOL. GREGG 07/12/20 1. sIUP @ 38.0 - SVE: 5/-2 @ 1815, AROM at 1815 with clear fluid - epidural placed around 1800 - GBS neg - Continue pitocin augmentation 2. A2GDM, insulin dependent - Goal BG 70-110 intrapartum - Q4h accucheck in latent labor, Q2h in active labor, Q1h in active second stage 3. cHTN - Recorded pressure of 179/100 around 1317, per nursing reports BP cuff was on the floor at this time - Elevated pressures noted during epidural - Severe range pressure of 162/81, 155/89 on repeat - If patient has one more severe range pressure, will give labetalol, consider starting mag, and consider getting repeat Pre-E labs - Pre-E labs from this morning showed normal platelets, normal AST/ALT, and Pr/Cr ration of 0.09 4. Obesity affecting - aware 5. Anemia affecting - aware 6. Rh Negative status affecting - Rhogam given 04/17/20 - will need Rhogam PP 7. Hx of Thyroiditis - aware 8. GERD - TUMS PRN 9. Tachycardia - resolved
[2020-06-28] MEDS ORDERED: Labetalol HCl 100 MG/20 ML VIAL SLOW IVP PRN (18:36)
[2020-06-28] MEDS ORDERED: Calcium Gluc 4.6 MEQ/10 ML (100 MG/ML) SLOW IVP PRN (20:46)
--- NOTE | 2020-06-28 20:48 | PDOC.LDPN ---
Labor & Delivery Progress Note - Subjective Subjective: comfortable - Objective Abnormal vital signs: Severe range pressures of 163/86 and 181/88 General: NAD Dilation: 6 Effacement: 75% Station: -2 FHT: category 2, early decelerations, variability present [place] contractions every: 1-2 AROM: clear fluid IUPC placed: yes -: 29 Y/O @ 38.0 weeks dated by LMP c/w 11.6 wk sono presents for mIOL. GREGG 07/12/20 1. sIUP @ 38.0 - SVE: /-2 @ 1930, IUPC placed - AROM at 1815 with clear fluid - epidural placed around 1800 - GBS neg - Pit at 20, continue augmentation 2. A2GDM, insulin dependent - Goal BG 70-110 intrapartum - Q4h accucheck in latent labor, Q2h in active labor 3. cHTN - more than two severe range pressures documented - labetalol ordered - will start mag and repeat Pre-E labs - Pre-E labs from this morning showed normal platelets, normal AST/ALT, and Pr/Cr ration of 0.09 - denies QUINN, SOB, Chest pain, Change in vision, abdominal pain 4. Obesity affecting - aware 5. Anemia affecting - aware 6. Rh Negative status affecting - Rhogam given 04/17/20 - will need Rhogam PP 7. Hx of Thyroiditis - aware 8. GERD - TUMS PRN 9. Tachycardia - resolved ATTENDING ADDENDUM: see my event note for details.
[2020-06-28] MEDS: Labetalol HCl 100 MG/20 ML VIAL SLOW IVP PRN (20:51)
[2020-06-28] MEDS ORDERED: Magnesium Sulfate 20 GM/WATER 500 ML BAG IVPB SCH (21:00)
[2020-06-28] MEDS ORDERED: Magnesium Sulfate 20 gm/500 ml 20 GM/500 ML BAG ONE (21:07)
--- NOTE | 2020-06-28 21:51 | PDOC.EVN ---
Event Note - Event Note Event Note: patient evaluated and FHT reviewed by me. Patient had isolated severe range BP at approx 1800 that spontaneously resolved. She had repeat severe range BP at approximately 2130. Patient received labetalol IV. Epidural was bolused at the same time leading to a decrease in SPB by approximately 60 mmHg. experienced a prolonged decel into the 70s-80s for approx 2 minutes that quickly resolved with fluid bolus, position change, and cessation of pitocin. Will initiate IV mag therapy at this time. Resume augmentation after has recovered. at this time has baseline 145 with moderate variability and accelerations w/o decels.
[2020-06-28] MEDS: Magnesium Sulfate 20 gm/500 ml 20 GM/500 ML BAG IVPB SCH (22:09)
[2020-06-28 22:13] LABS: #Eosinphils 0.1 thou/uL (0.0-0.7); #Lymphocytes 2.4 thou/uL (1.20-3.40); #Monocytes 0.8 thou/uL (0.11-0.59); #Neutrophils 8.7 thou/uL (1.40-6.50); %Basophils 0.2 % (0.0-1.0); %Eosinophils 0.5 % (0.0-10.0); %Lymphocytes 19.7 % (21.0-51.0); %Monocytes 6.9 % (0.0-10.0); %Neutrophils 72.8 % (42.0-75.0); Hemoglobin 10.4 g/dL (12.0-16.0); Mean Corpuscular Hemoglobin 24.3 pg (27.0-31.0); Mean Platelet Volume 8.7 fL (7.4-10.4); Platelet Count 248 thou/uL (130-400); RBC Distribution Width 15.8 % (11.5-14.5); Red Blood Cell (RBC) Count 4.28 mill/uL (4.20-5.40)
[2020-06-28 22:35] LABS: ALT (SGPT) 15 U/L (8-55); AST (SGOT) 19 U/L (5-34); Albumin 2.8 g/dL (3.5-5.0); Alkaline Phosphatase 180 U/L (40-110); Anion Gap 15 mmol/L (10-20); BUN (Urea Nitrogen) 10 mg/dL (7.0-18.7); Bilirubin, Total 0.3 mg/dL (0.2-1.2); Calc. Creatinine Clearance 218 mL/min (70-130); Calcium 8.2 mg/dL (7.8-10.44); Carbon Dioxide 18 mmol/L (22-29); Chloride 105 mmol/L (98-107); Estimated GFR-MDRD Greater than 90; Globulin 3.2 g/dL (2.4-3.5); Glucose 81 mg/dL (70-105); Potassium 3.7 mmol/L (3.5-5.1); Sodium 134 mmol/L (136-145)
[2020-06-28] MEDS ORDERED: Misoprostol 200 MCG TAB ONE (22:54)
[2020-06-28] MEDS ORDERED: Methylergonovine 0.2 MG/ML VIAL ONE (22:55)
[2020-06-28] MEDS ORDERED: Carboprost 250 MCG/ML AMP ONE (22:55)
[2020-06-28] MEDS ORDERED: NS / Oxytocin 40 units/1000ml 1,000 ML ONE (22:55)
--- NOTE | 2020-06-28 23:29 | PDOC.OPDEL ---
OB Operative/Delivery Note Delivery Dr/Surgeon: Osorio/Franko , with Dr. Kenney attendign Pre-Delivery Diagnosis: active labor, medically indicated induction Procedure/Post Delivery Dx: spontaneous vaginal delivery Weeks gestation: 38 Anesthesia: epidural - Additional Findings/Plan Placenta delivered: spontaneous Repaired Obstetrical Laceration: 2nd degree Estimated blood loss: 150 mL Compilations/Other Findings: Delivering Physician Osorio/Franko Attending Dr. Kenney Procedure: Spontaneous Vaginal Delivery Anesthesia: epidural QBL: 150 ml Pre-op Diagnosis: 1. Term intrauterine in labor 2. A2GDM 3. cHTN 4. Obesity 5. STAR Post-op Diagnosis: 1. Term intrauterine , delivered 2. same as above Indications: A 29y/o female [id number]--> 2002 presents in active labor presents to L&D for induction due to A2GND and cHTN. Delivery Note: This is 29yo F @ 38.0wks who delivered a viable F at 23:54 on 06/28. Following an uneventful antepartum course, a vigorous F was delivered over an intact perineum in the occipitoanterior position. Anterior Shoulder and then remainder of the body delivered. No nuchal cord. The head was held down and mouth and nares were bulb suctioned. Cord clamped and cut and cord blood collected. Placenta delivered intact in the [place] presentation with a 3 vessel cord noted. Fundal massage was performed and the fundus was firm. The cervix and vagina were inspected and found to have a 2nd degree posterior perineal laceration and repaired with 3-0 Chromic in the usual fashion with good approximation and hemostasis. went to nursery in good condition for routine care. Apgars were 8/9 at 1 & 5 minutes, respectively. Patient tolerated delivery well and went to after routine recovery/care. ATTENDING ADDENDUM: I was present for and supervised the entire delivery and laceration repair. agree w/ above. Post delivery plan: routine recovery
[2020-06-28] MEDS: NS / Oxytocin 40 units/1000ml 1,000 ML IV PRN (23:57)
[2020-06-29] MEDS: NS / Oxytocin 40 units/1000ml 1,000 ML IV PRN (01:32)
--- NOTE | 2020-06-29 03:27 | PDOC.BPN ---
- Brief Progress Note Encounter Date: 06/29/20 Encounter Time: 03:15 S: Reports some back pain. Denies shortness of breath, headache, visual disturbances, N/V, and RUQ pain. O: BP: 111/55 P: 96 RR: 16 T: 97.9 UO: 450 over 4 hours General Appearance: sleeping comfortably in bed, easily arousable Cardiovascular: RRR Lungs: CTAB, no respiratory distress Abdomen: No RUQ tenderness, fundus firm Extremities: 1+ DTRs A/P: 29 year old G2 now P2 on MgSO4 for Preeclampsia. No signs/symptoms of Mg toxicity. Will continue Mg for 24 hrs. (end 06/30 ~2099)
[2020-06-29 03:45] LABS: Creatinine, Urine 26.34 mg/dL (47-110); Protein, Urine Random Quant Less than 10 mg/dL (1-14)
[2020-06-29] MEDS: Magnesium Sulfate 20 gm/500 ml 20 GM/500 ML BAG IVPB SCH (06:40)
--- NOTE | 2020-06-29 07:21 | PDOC.PP ---
Post Progress Note Post Day #: 1 Subjective: Doing well this morning. complains of IV pain. PO intake tolerated: no Flatus: no Ambulation: no (She is on Mag) Weight Weight 125.645 kg Blood pressures: Overnight all within 110s-120s / 60s-70s. This morning while rounding there was one reading of 162/84 and she was laying on her left arm (BP Cuff side) when this took. - Physical Examination General: NAD Cardiovascular: no m/r/g, RRR Respiratory: clear to auscultation bilaterally, non-labored breathing Abdominal: lochia, no distention, appropriately TTP Neurological: no gross focal deficits (Reflexes 2+ in the brachioradialis and biceps.) Psychiatric: A&Ox3, normal affect Result Diagrams: 06/30/20 05:25 06/28/20 21:56 Additional Labs: Post Labs Blood Type A NEGATIVE 06/28/20 09:18 Laboratory Tests 06/28/20 06/28/20 06/29/20 21:56 21:56 03:10 Plt Count 248 Creatinine 0.75 AST 19 ALT 15 U Random Total Protein Less than 10 Urine Creatinine 26.34 L (1) Anemia affecting Code(s): O99.019 - ANEMIA COMPLICATING , UNSPECIFIED TRIMESTER Status: Acute (2) Chronic hypertension during Code(s): O10.919 - UNSP PRE-EXISTING HTN COMP , UNSP TRIMESTER Status: Acute (3) Obesity affecting Code(s): O99.210 - OBESITY COMPLICATING , UNSPECIFIED TRIMESTER Status: Acute (4) Obstructive sleep apnea Code(s): G47.33 - OBSTRUCTIVE SLEEP APNEA (ADULT) (PEDIATRIC) Status: Acute (5) Rh negative status during in third trimester Code(s): O26.893 - OTH RELATED CONDITIONS, THIRD TRIMESTER; Z67.91 - UNSPECIFIED BLOOD TYPE, RH NEGATIVE Status: Acute (6) Vaginal delivery Code(s): O80 - ENCOUNTER FOR FULL-TERM UNCOMPLICATED DELIVERY Status: Acute (7) White classification A2 gestational diabetes mellitus (GDM), insulin controlled Code(s): O24.414 - GESTATIONAL DIABETES IN , INSULIN CONTROLLED Status: Acute - Assessment/Plan 29 Y/O @ 38.0 weeks dated by LMP c/w 11.6 wk sono presents for mIOL. GREGG 07/12/20 1. Term delivered, s/p @ 38.0wks gestation. - GBS neg - Delivered @ 23:54 06/28. Apgars 8/9. - QBL: 239mL - 2nd degree perineal laceration, repaired. 2. A2GDM, insulin dependent - Resume blood glucose monitoring. 3. cHTN with superimposed preE with severe features - Negative urine protein overnight. CBC CMP wnl. Will monitor pressures. - On magnesium ppx. Will monitor for mag toxicity. Urine output has been >175mL/hour on mag. - denies QUINN, SOB, Chest pain, Change in vision, abdominal pain 4. Obesity affecting - aware 5. Anemia affecting - aware 6. Rh Negative status affecting - will need Rhogam PP 7. Hx of Thyroiditis - aware 8. GERD - TUMS PRN 9. Tachycardia - resolved Korey ARAUJO PGY2 Addendum - Attending - Attending Attestation Date/Time: 06/29/20 0839 I personally evaluated the patient and discussed the management with Dr. Lockhart I agree with the History, Examination, Assessment and Plan documented above with any addition or exceptions noted below. PPD#1 Patient doing well. Pain controlled. Lochia appropriate. Still without good diuresis since delivery. Continue to closely monitor BP. - Continue mag for at least 24 hours. Prolong if continues to have risk for seizure. - Closely monitor output. Will give IV lasix to help with 3rd spacing. Jus
[2020-06-29] MEDS ORDERED: Lanolin Ointment 7 GM TUBE TOP PRN (08:00)
[2020-06-29] MEDS ORDERED: diphenhydrAMINE 25 MG CAP PO PRN (08:00)
[2020-06-29] MEDS ORDERED: Magnesium Sulfate 20 gm/500 ml 20 GM/500 ML BAG IVPB SCH (08:00)
[2020-06-29] MEDS ORDERED: Ondansetron PF 4 MG/2 ML Vial IVP PRN (08:00)
[2020-06-29] MEDS ORDERED: Milk Of Magnesia 30 ML UDCUP PO PRN (08:00)
[2020-06-29] MEDS ORDERED: NS / Oxytocin 40 units/1000ml 1,000 ML IV SCH (08:00)
[2020-06-29] MEDS ORDERED: Calcium Gluconate 4.6 MEQ in Sodium Chloride 0.9% 100 ML IVPB PRN (08:00)
[2020-06-29] MEDS ORDERED: hydrALAZINE 20 MG/ML VIAL SLOW IVP PRN (08:00)
[2020-06-29] MEDS ORDERED: Bisacodyl 10 MG SUPP PR PRN (08:00)
[2020-06-29] MEDS: Ferrous Sulfate 325 MG TAB PO SCH ×2 (09:22→23:55)
[2020-06-29] MEDS: Ibuprofen 800 MG TAB PO SCH (11:24)
--- NOTE | 2020-06-29 11:29 | PDOC.BPN ---
<Mayra Lockhart - Last Filed: 06/29/20 11:20> - Brief Progress Note Encounter Date: 06/29/20 Encounter Time: 11:20 Subjective: Patient doing well. Complains of lower back pain. Denies headache, vision changes, chest pain, shortness of breath, nausea, vomiting, numbness or tingling. Objective: VS reviewed BP 163/87 at the present time. Will recheck in 5 min. Log reviewed, no severe range pressures. One documented as 200/110 - blood pressure cuff was not correctly placed and patient's arm was bent at the elbow. Reflexes 2+ throughout. Urine output >300mL/hour for the last 4 hours. Total urinary output since delivery is 3530mL A/P: 29 Y/O 1. Term delivered, s/p @ 38.0wks gestation. - GBS neg - Delivered @ 23:54 06/28. Apgars 8/9. - QBL: 239mL - 2nd degree perineal laceration, repaired. 2. A2GDM, insulin dependent - aware. Holding insulin. 3. cHTN with severe range pressures - Negative urine protein overnight. CBC CMP wnl. Will monitor pressures. - On magnesium ppx. Will monitor for mag toxicity. 4. Obesity affecting - aware 5. Anemia affecting - aware 6. Rh Negative status affecting - will need Rhogam PP 7. Hx of Thyroiditis - aware 8. GERD - TUMS PRN 9. Tachycardia - resolved Korey ARAUJO PGY2 <Nida Leon - Last Filed: 06/30/20 10:43> - Brief Progress Note #3. cHTN with superimposed preE with severe features Attending Note: Patient seen and examined. Agree with documentation above. Continue close monitoring of renal function, BP, and UOP. Jus
[2020-06-29] MEDS ORDERED: Furosemide 40 MG/4 ML VIAL SLOW IVP SCH (11:30)
[2020-06-29] MEDS: Labetalol HCl 100 MG/20 ML VIAL SLOW IVP PRN (11:45)
[2020-06-29] MEDS: Docusate Calcium (SURFAK) 240 MG CAP PO SCH ×2 (15:09→23:54)
[2020-06-29] MEDS: Lactated Ringer's 1,000 ML IV SCH (15:17)
--- NOTE | 2020-06-29 15:27 | PDOC.BPN ---
<Mayra Lockhart D - Last Filed: 06/30/20 06:29> - Brief Progress Note Encounter Date: 06/29/20 Encounter Time: 15:15 Subjective: Patient doing well. Complains of lower back pain. Denies headache, vision changes, chest pain, shortness of breath, nausea, vomiting, numbness or tingling. Objective: VS reviewed All BP since last check have been 130s/60-70s. Reflexes 2+ throughout. Urine output 1200mL in last 2 hours. A/P: 29 Y/O 1. Term delivered, s/p @ 38.0wks gestation. - GBS neg - Delivered @ 23:54 06/28. Apgars 8/9. - QBL: 239mL - 2nd degree perineal laceration, repaired. 2. A2GDM, insulin dependent - aware. Holding insulin. 3. cHTN with severe range pressures - Negative urine protein overnight. CBC CMP wnl. Will monitor pressures. - On magnesium ppx. Will monitor for mag toxicity. - s/p 40mg IV lasix and 20mg labetolol. - Will check mag level and use Nifedipine if pressures remain elevated. Korey ARAUJO PGY2 <Nida Leon - Last Filed: 06/30/20 10:47> - Brief Progress Note #3. cHTN with superimposed preE with severe features. Attending Note: Patient seen and examined. Agree with resident above. Responded well to Lasix. Repeat if UOP slows again. Due to other risk factors if antihypertensive needed needs diuretic or CCB. No hydraliazine available. Continue close monitoring. Jus
[2020-06-29] MEDS ORDERED: Ibuprofen 800 MG TAB PO SCH (20:00)
[2020-06-29] MEDS ORDERED: NIFEdipine XL 30 MG TAB PO SCH (23:45)
--- NOTE | 2020-06-30 00:12 | PDOC.BPN ---
- Brief Progress Note Encounter Date: 06/29/20 Encounter Time: 23:00 S: Reports chest tightness that has improved with sitting up, denies difficulty breathing. Reports headache that improves with tylenol. Denies N/V, RUQ pain O: BP: 155/90 P: 82 RR: 18 T: 98.5; two severe range pressures of 176/81 and 173/80 UO: >1200 over 4 hours General Appearance: sitting up comfortably in bed Cardiovascular: RRR Lungs: CTAB, no respiratory distress Abdomen: No RUQ tenderness, fundus firm Extremities: 2+ DTRs A/P: 29 year old G2 now P2 on MgSO4 for Preeclampsia. No signs/symptoms of Mg toxicity. Will stop mag. Give nifedipine for pressures. Continue to monitor
[2020-06-30] MEDS ORDERED: Sodium Chloride 0.9% 10 ML ONE ×2 (03:21→09:17)
[2020-06-30 05:33] LABS: Hemoglobin 9.7 g/dL (12.0-16.0)
[2020-06-30] MEDS: Ibuprofen 800 MG TAB PO SCH ×4 (05:48→20:15)
--- NOTE | 2020-06-30 06:32 | PDOC.PP ---
Post Progress Note Post Day #: 2 Subjective: Doing well this morning, no concerns. PO intake tolerated: yes Flatus: yes Ambulation: yes Vital Signs (12 hours) Temp Pulse Resp BP BP Pulse Ox 06/30/20 03:24 97.8 F 85 20 132/76 98 06/30/20 01:50 98.3 F 94 18 133/84 99 06/29/20 23:52 82 161/99 H Weight Weight 125.645 kg - Physical Examination General: NAD Cardiovascular: no m/r/g, RRR Respiratory: clear to auscultation bilaterally, non-labored breathing Abdominal: + bowel sounds, lochia, no distention, appropriately TTP Extremities: negative homans (B) Neurological: no gross focal deficits Psychiatric: A&Ox3, normal affect Result Diagrams: 06/30/20 05:25 06/28/20 21:56 Additional Labs: Post Labs Blood Type A NEGATIVE 06/28/20 09:18 (1) Anemia affecting Code(s): O99.019 - ANEMIA COMPLICATING , UNSPECIFIED TRIMESTER Status: Acute (2) Chronic hypertension during Code(s): O10.919 - UNSP PRE-EXISTING HTN COMP , UNSP TRIMESTER Status: Acute (3) Obesity affecting Code(s): O99.210 - OBESITY COMPLICATING , UNSPECIFIED TRIMESTER Status: Acute (4) Obstructive sleep apnea Code(s): G47.33 - OBSTRUCTIVE SLEEP APNEA (ADULT) (PEDIATRIC) Status: Acute (5) Rh negative status during in third trimester Code(s): O26.893 - OTH RELATED CONDITIONS, THIRD TRIMESTER; Z67.91 - UNSPECIFIED BLOOD TYPE, RH NEGATIVE Status: Acute (6) Vaginal delivery Code(s): O80 - ENCOUNTER FOR FULL-TERM UNCOMPLICATED DELIVERY Status: Acute (7) White classification A2 gestational diabetes mellitus (GDM), insulin controlled Code(s): O24.414 - GESTATIONAL DIABETES IN , INSULIN CONTROLLED Status: Acute - Assessment/Plan 29 Y/O delivered. 1. Term delivered, s/p @ 38.0wks gestation. - GBS neg - Delivered @ 23:54 9/23. Apgars 8/9. - QBL: 239mL + 49mL - 2nd degree perineal laceration, repaired. - Desires IUD for pp contraception. Will refer to procedures clinic for placement within the 6 week period. 2. A2GDM, insulin dependent - Will start Metformin 500mg BID as the patient is . Will need 2hr gtt at 6wks pp. 3. cHTN with severe range pressures - Negative urine protein overnight. CBC CMP wnl. Will monitor pressures. - Received 24hrs of magnesium sulfate pp. - Has continued to have elevated pressures and required one dose of nifedipine overnight. - Will monitor BP and output today. 4. Obesity affecting - aware 5. Anemia affecting - Hb 9.7 this morning. - Will need to take iron supplementation on d/c. 6. Rh Negative status affecting - s/p Rhogam 7. Hx of Thyroiditis - aware, will require f/u at post- visits. 8. GERD - TUMS PRN 9. Tachycardia - resolved Korey ARAUJO PGY2 Addendum - Attending - Attending Attestation Date/Time: 06/30/20 0848 I personally evaluated the patient and discussed the management with Dr. Lockhart I agree with the History, Examination, Assessment and Plan documented above with any addition or exceptions noted below. PPD#2 Patient doing well. Asymptomatic. Vaginal edema resolved. Lochia minimal. Less than expected UOP. Will give repeat dose of IV Lasix this morning. Continue ce se monitoring throughout the day. At this time no need to start antihypertensive. Initially did not want to breast feed. Now attempting. Will consult lacation. Add metformin. Start lovenox. Encourage ambulation. Jus
[2020-06-30] MEDS ORDERED: Adacel (T-DAP) 0.5 ML SYRINGE IM ONE (08:00)
[2020-06-30] MEDS: Ferrous Sulfate 325 MG TAB PO SCH ×3 (08:15→20:16)
[2020-06-30] MEDS: Docusate Calcium (SURFAK) 240 MG CAP PO SCH ×2 (08:15→20:15)
[2020-06-30] MEDS ORDERED: Furosemide 40 MG/4 ML VIAL SLOW IVP SCH (09:00)
[2020-06-30] MEDS ORDERED: metFORMIN 500 MG TAB PO SCH ×2 (09:33→10:00)
[2020-06-30] MEDS: Enoxaparin Sodium 40 MG/0.4 ML SYRINGE SC SCH (12:12)
[2020-06-30] MEDS: metFORMIN 500 MG TAB PO SCH (17:19)
[2020-06-30] MEDS ORDERED: Benzocaine-Menthol 82.5 ML CAN TOP PRN (19:48)
[2020-07-01] MEDS: Ibuprofen 800 MG TAB PO SCH ×2 (05:10→14:53)
--- NOTE | 2020-07-01 06:36 | PDOC.PP ---
Post Progress Note Post Day #: 3 Subjective: Patient reports she is doing well, denies QUINN, CP, SOB, edema. Reports that she passed a small clot while peeing and has had some cramping abdominal pain. Otherwise no acute concerns. PO intake tolerated: yes Flatus: yes Ambulation: yes Vital Signs (12 hours) Temp Pulse Resp BP Pulse Ox 07/01/20 05:10 97.5 F L 87 22 H 133/87 99 07/01/20 00:35 98.3 F 85 20 135/71 99 06/30/20 20:00 98.2 F 94 18 126/68 99 Weight Weight 125.645 kg - Physical Examination General: NAD Cardiovascular: no m/r/g, RRR Respiratory: clear to auscultation bilaterally, non-labored breathing Abdominal: + bowel sounds, no distention, appropriately TTP Perineum: mild lochia, repair intact, no signs of infection or hematoma Neurological: no gross focal deficits Result Diagrams: 06/30/20 05:25 06/28/20 21:56 Additional Labs: Post Labs Blood Type A NEGATIVE 06/28/20 09:18 (1) White classification A2 gestational diabetes mellitus (GDM), insulin con trolled Code(s): O24.414 - GESTATIONAL DIABETES IN , INSULIN CONTROLLED Status: Acute (2) Chronic hypertension during Code(s): O10.919 - UNSP PRE-EXISTING HTN COMP , UNSP TRIMESTER Status: Acute (3) Obesity affecting Code(s): O99.210 - OBESITY COMPLICATING , UNSPECIFIED TRIMESTER Status: Acute (4) Obstructive sleep apnea Code(s): G47.33 - OBSTRUCTIVE SLEEP APNEA (ADULT) (PEDIATRIC) Status: Acute (5) Anemia affecting Code(s): O99.019 - ANEMIA COMPLICATING , UNSPECIFIED TRIMESTER Status: Acute (6) Rh negative status during in third trimester Code(s): O26.893 - OTH RELATED CONDITIONS, THIRD TRIMESTER; Z67.91 - UNSPECIFIED BLOOD TYPE, RH NEGATIVE Status: Acute - Assessment/Plan 29 Y/O delivered. 1. Term delivered, s/p @ 38.0wks gestation. - GBS neg - Delivered @ 23:54 06/28. Apgars 8/9. - QBL: 239mL + 49mL - 2nd degree perineal laceration, repaired. - Desires IUD for pp contraception. Will refer to procedures clinic for placement within the 6 week period. 2. A2GDM, insulin dependent - Will start Metformin 500mg BID as the patient is . Will need 2hr gtt at 6wks pp. 3. cHTN with severe range pressures - Monitor pressures, SBP 120-130 over night - Received 24hrs of magnesium sulfate pp. - Continue to monitor BP and output today. 4. Obesity affecting - aware 5. Anemia affecting - Hb 9.7 this morning. - Will need to take iron supplementation on d/c. 6. Rh Negative status affecting - s/p Rhogam 7. Hx of Thyroiditis - aware, will require f/u at post- visits. 8. GERD - TUMS PRN 9. Tachycardia - resolved Plan DC today Addendum - Attending - Attending Attestation Date/Time: 07/01/20 0822 I personally evaluated the patient and discussed the management with Dr. Erickson I agree with the History, Examination, Assessment and Plan documented above with any addition or exceptions noted below. Doing well. BP normotensive. Encouraged to continue BID to TID monitoring at home. Follow up BP check at [facility] on Friday or Friday. ER precautions discussed. Breast feeding. Continue metformin to help with . Will need DM screening at 6 wks pp. Needs follow up with PCP for other co-morbid conditions. Vaginal laceration healing well. No edema. ABrayMD
[2020-07-01] MEDS: Enoxaparin Sodium 40 MG/0.4 ML SYRINGE SC SCH (08:34)
[2020-07-01] MEDS: metFORMIN 500 MG TAB PO SCH (08:34)
[2020-07-01] MEDS: Ferrous Sulfate 325 MG TAB PO SCH (08:35)
[2020-07-01] MEDS: Docusate Calcium (SURFAK) 240 MG CAP PO SCH (08:35)
[2020-07-01 15:13] VITALS: BP 108/62; TEMP 98.3
== END 2020-07-01 16:10 | disposition home or self-care (01) | DRG 807 ==
LOC: L&D 06:21 → 3SW 06-30 01:40
PROVIDERS: ADMIT Student in an Organized Health Care Education/Training Program; ATTEND Student in an Organized Health Care Education/Training Program
PROC: 10E0XZZ Delivery of Products of Conception, External Approach (ICD-10-PCS; principal; 2020-06-28)
PROC: 0KQM0ZZ Repair Perineum Muscle, Open Approach (ICD-10-PCS; 2020-06-28)
PROC: 10907ZC Drainage of Amniotic Fluid, Therapeutic from Products of Conception, Via Natural or Artificial Opening (ICD-10-PCS; 2020-06-28)
PROC: 3E033VJ Introduction of Other Hormone into Peripheral Vein, Percutaneous Approach (ICD-10-PCS; 2020-06-28)
DX: O24.424 Gestational diabetes mellitus in childbirth, insulin controlled (principal); Z37.0 Single live birth; O70.1 Second degree perineal laceration during delivery; G47.33 Obstructive sleep apnea (adult) (pediatric); O99.214 Obesity complicating childbirth; E66.9 Obesity, unspecified; O99.02 Anemia complicating childbirth; D64.9 Anemia, unspecified; K21.9 Gastro-esophageal reflux disease without esophagitis; E88.81 Metabolic syndrome and other insulin resistance; O99.284 Endocrine, nutritional and metabolic diseases complicating childbirth; E06.9 Thyroiditis, unspecified; Z3A.38 38 weeks gestation of pregnancy; O11.4 Pre-existing hypertension with pre-eclampsia, complicating childbirth; O99.62 Diseases of the digestive system complicating childbirth
CPT/HCPCS: 36415; 36416; 51702; 80053; 80306; 82570; 83735; 84156; 85014; 85018; 85027; 85461; 86850; 86900; 86901; 87635; 90384; 96372; J0670; J1650; J1940; J2210; J2590; J3475; J3490; U0003